=== PATIENT | female | born 1985 | race Caucasian/White ===

== ENCOUNTER 2025-01-16 12:44 | Outpatient (CLI) | payer OTHER, SELFPAY ==
--- NOTE | ~2025-01-16 | US_ITS ---
US thyroid INDICATION: Thyroid nodule TECHNIQUE: Real-time sonographic images of the thyroid gland were obtained. COMPARISON: No prior studies for comparison. FINDINGS: The right thyroid lobe measures 5.4 x 2.2 x 1.5 cm. The left thyroid lobe measures 5.9 x 1.8 x 1.6 cm. Isthmus measures 3 mm. There is normal echotexture and echogenicity throughout the thyroid gland. In the right lobe of the thyroid gland there is an oval parallel oriented hypoechoic 6 mm solid mass with circumscribed margins, wider than tall, smoothly marginated without echogenic foci, TR 4. No suspicious masses are identified which meet sonographic criteria for biopsy. Normal vascular flow is present. IMPRESSION: 1. Benign-appearing 6 mm right thyroid mass which does not meet sonographic criteria for biopsy. No follow-up required. Reviewed, dictated and finalized at location O. IMPRESSION: 1. Benign-appearing 6 mm right thyroid mass which does not meet sonographic cr iteria for biopsy. No follow-up required.
== END 2025-01-16 12:45 | disposition home or self-care (01) ==
PROVIDERS: PCP Nurse Practitioner; Visit Provider Physician Assistant
DX: E04.1 Nontoxic single thyroid nodule (principal)
CPT/HCPCS: 76536